=== PATIENT | female | born 1960 | race Caucasian/White ===

== ENCOUNTER 2023-04-28 20:10 | Emergency (ER) | payer OTHER, SELFPAY ==
[2023-04-28 20:12] VITALS: BP 192/88; PULSE 96; RESP 20; TEMP 37.2; O2SAT 95; BMI 24.1
--- NOTE | 2023-04-28 20:15 | DI.RAD.S_ITS ---
PROCEDURE: XR CHEST 1V INDICATIONS: fall TECHNIQUE: One view of the chest was acquired. COMPARISON: None. FINDINGS: Surgical changes and devices: None. Lungs and pleura: Lungs are clear. No pleural effusions or pneumothorax. Mediastinum: Mediastinal contours appear normal. Heart size is normal. Bones and chest wall: No suspicious bony lesions. Overlying soft tissues appear unremarkable. IMPRESSION: No acute pulmonary process. Dictated by: Brenda Bradley M.D. on 04/28/2023 at 20:33 Approved by: Brenda Bradley M.D. on 04/28/2023 at 20:33
--- NOTE | 2023-04-28 20:15 | DI.CT.S_ITS ---
PROCEDURE: CT HEAD/BRAIN WO CON INDICATIONS: fall TECHNIQUE: Noncontrast 4.5 mm thick angled axial sections acquired from the foramen magnum to the vertex, with coronal and sagittal reformats. For radiation dose reduction, the following was used: automated exposure control, adjustment of mA and/or kV according to patient size. COMPARISON: None. FINDINGS: Image quality: Excellent. CSF spaces: Basal cisterns are patent. No extra-axial fluid collections. Ventricles are normal in size and shape. Brain: No midline shift. No intracranial masses or hemorrhage. Garcia-white matter interface is normal. Skull and face: Calvarium and visualized facial bones are intact, without suspicious lesions. Sinuses: Visualized sinuses and mastoids are clear. IMPRESSION: 1. No acute intracranial process. Dictated by: Brenda Bradley M.D. on 04/28/2023 at 20:56 Approved by: Brenda Bradley M.D. on 04/28/2023 at 20:57
--- NOTE | 2023-04-28 20:15 | DI.CT.S_ITS ---
PROCEDURE: CT CERVICAL SPINE WO CON INDICATIONS: fall TECHNIQUE: Noncontrast 3 mm thick sections acquired from the skull base to the T4 level. Sagittal and coronal reformats were then constructed. For radiation dose reduction, the following was used: automated exposure control, adjustment of mA and/or kV according to patient size. COMPARISON: [facility], CT, CT HEAD/BRAIN WO CON, 04/28/2023, 20:25. FINDINGS: Image quality: Excellent. Bones: No fractures or dislocations. Visualized superior ribs are intact. Multilevel degenerative changes are present most severe with disc space narrowing at C5-6. Soft tissues: Prevertebral soft tissues are normal in thickness. No paravertebral hematomas. No apical pneumothoraces. IMPRESSION: Multilevel degenerative changes without visualized fracture. Dictated by: Brenda Bradley M.D. on 04/28/2023 at 20:54 Approved by: Brenda Bradley M.D. on 04/28/2023 at 20:56
--- NOTE | 2023-04-28 20:33 | PC.NURSE ---
While holding spine precautions, pt's collar readjusted to fit pt properly. Pt given education on plan of care and why she has a c collar on. Pt verbalizes understanding.
[2023-04-28] MEDS: ACETAMINOPHEN 325 MG TABLET 975 MG PO (20:46)
--- NOTE | 2023-04-28 21:45 | PC.NURSE ---
Dr. Quijano reviewed ct scans. C-collar removed from patient.
[2023-04-28 22:12] VITALS: BP 173/82; PULSE 76; RESP 16; O2SAT 98
--- NOTE | 2023-04-28 22:43 | ED.NECK ---
HPI - Neck Pain/Injury General Chief Complaint: Neck Pain/Injury Stated Complaint: Fall down 5 stairs Time Seen by Provider: 04/28/23 20:15 Mode of arrival: Ambulatory History of Present Illness HPI Narrative: Patient is a 62-year-old female poor historian presenting today after a fall. Friends with her report that she was on a boat top of stairs when she fell down hitting her head kind of landing to the right. There was a brief loss of consciousness. She is not on antiplatelet medication. There is a reported history of some heart problem but it is very unclear what the problem is she denies heart attacks or mechanical valve. He has no nausea or vomiting she is awake alert she has pain and contusion behind her head but no other injuries. Related Data Allergies Allergy/AdvReac Type Severity Reaction Status Date / Time No Known Drug Allergies Allergy Verified 04/28/23 20:25 Review of Systems Review of Systems ROS Unobtainable: All systems reviewed & are unremarkable except as noted in HPI and below Patient History Social History Smoking Status: Never smoker Smoking Status: Never smoker alcohol intake frequency: 0-2 drinks per day Substance Use Type: does not use Exam Initial Vital Signs Initial Vital Signs: Vital Signs Temperature 98.9 F 04/28/23 20:12 Pulse Rate 96 H 04/28/23 20:12 Respiratory Rate 20 04/28/23 20:12 Blood Pressure 192/88 H 04/28/23 20:12 Pulse Oximetry 95 04/28/23 20:12 Oxygen Delivery Method Room Air 04/28/23 20:12 GENERAL: Well-appearing, well-nourished and in no acute distress. HEENT: Head posterior contusion and swelling there is blood difficult to find laceration or abrasion EOMI, pupils reactive, face symmetric, moist mucous membranes NECK: Vertebral tenderness C-collar in place CARDIOVASCULAR: Regular rate and rhythm without murmurs, rubs or gallops. RESPIRATORY: Breath sounds equal bilaterally, no wheezes rales or rhonchi. ABDOMEN: Soft, nontender. Normoactive bowel sounds all 4 quadrants. No guarding or rebound. EXTREMITIES: Normal range of motion, no clubbing or edema. Neurovascularly intact NEUROLOGICAL: Alert and oriented x4.Normal gait and speech. Cranial nerves II through XII grossly intact. Student Officer strength equal bilaterally SKIN: Warm, dry, no laceration, no petechiae, no rashes or lesions. Scores GCS [place] coma scale eye opening: Spontaneous [place] coma scale verbal response: Orientated [place] coma scale motor response: Obey commands [place] coma scale total score: 15 Course Orders Ordered: ED Orders 04/28/23 20:15 CT cervical spine wo con Stat CT head/brain wo con Stat Chest [XR chest 1V] Stat Discontinued Medications Acetaminophen (Acetaminophen 325 Mg Tablet) 975 mg PO NOW ONE Stop: 04/28/23 20:16 Last Admin: 04/28/23 20:46 Dose: 975 mg Documented By: LUIS Vital Signs Vital signs: Vital Signs - 8 hr 04/28/23 22:12 04/28/23 22:51 04/28/23 23:20 Pulse Rate 76 77 Respiratory Rate 16 16 Blood Pressure 173/82 H 170/77 H 181/89 H Pulse Oximetry 98 98 Oxygen Delivery Method Room Air Room Air MDM - Neck Pain/Injury Imaging Data CT - cervical spine: Radiologist's Impression: PROCEDURE:? CT CERVICAL SPINE WO CON ? INDICATIONS:? fall ? TECHNIQUE:? Noncontrast 3 mm thick sections acquired from the skull base to the T4 level.? Sagittal and coronal reformats were then constructed.? For radiation dose reduction, the following was used:? automated exposure control, adjustment of mA and/or kV according to patient size.? ? COMPARISON:? [facility], CT, CT HEAD/BRAIN WO CON, 04/28/2023, 20:25. ? FINDINGS:? Image quality:? Excellent.? ? Bones:? No fractures or dislocations.? Visualized superior ribs are intact.? Multilevel degenerative changes are present most severe with disc space narrowing at C5-6. ? Soft tissues:? Prevertebral soft tissues are normal in thickness.? No paravertebral hematomas.? No apical pneumothoraces.? ? ? IMPRESSION:? Multilevel degenerative changes without visualized fracture. ? Dictated by: Brneda Bradley M.D. on 04/28/2023 at 20:54? Chest x-ray: Radiologist's Impression: PROCEDURE:? XR CHEST 1V ? INDICATIONS:? fall ? TECHNIQUE:? One view of the chest was acquired.? ? COMPARISON:? None. ? FINDINGS:? ? Surgical changes and devices:? None.? ? Lungs and pleura:? Lungs are clear.? No pleural effusions or pneumothorax.? ? Mediastinum:? Mediastinal contours appear normal.? Heart size is normal.? ? Bones and chest wall:? No suspicious bony lesions.? Overlying soft tissues appear unremarkable.? ? IMPRESSION:? No acute pulmonary process. ? ? Dictated by: Brenda Bradley M.D. on 04/28/2023 at 20:33 ?? CT scan - head: Radiologist's Impression: PROCEDURE:? CT HEAD/BRAIN WO CON ? INDICATIONS:? fall ? TECHNIQUE:? Noncontrast 4.5 mm thick angled axial sections acquired from the foramen magnum to the vertex, with coronal and sagittal reformats.? For radiation dose reduction, the following was used:? automated exposure control, adjustment of mA and/or kV according to patient size.? ? COMPARISON:? None. ? FINDINGS:? Image quality:? Excellent.? ? CSF spaces:? Basal cisterns are patent.? No extra-axial fluid collections.? Ventricles are normal in size and shape.? ? Brain:? No midline shift.? No intracranial masses or hemorrhage.? Garcia-white matter interface is normal.? ? Skull and face:? Calvarium and visualized facial bones are intact, without suspicious lesions.? ? Sinuses:? Visualized sinuses and mastoids are clear.? ? IMPRESSION:? 1. No acute intracranial process. ? ? Dictated by: Brenda Bradley M.D. on 04/28/2023 at 20:56 ? MDM Narrative Medical decision making narrative: Patient 62-year-old female extremely poor historian here with friends who do not know much more presents today after fall down 5 stairs. Possible brief loss of consciousness but now has a GCS of 15, she does have a posterior scalp contusion but no obvious laceration he with other is blood. Patient mildly cooperated to let us clean her up. She is given Tylenol for pain. She reports that she has a heart history but not sure what is going on. Not sure that she is on anticoagulation he denies it. She has no other injury chest x-ray is negative for pneumothorax or rib fracture. Moving all extremities. This time she is going home) to watch her. No further workup for imaging is indicated. Discharge Plan Departure Patient Disposition: Home Clinical Impression: Closed head injury Instructions: Concussion Activity Restrictions/Additional Instructions: *You have been diagnosed with concussion, closed head injury *What to do: At this time your scans are negative. He may continue to have headaches dizziness and nausea. You may noticed that screens and light make her headache worse. Please rest and sleep. *Continue to take medications as directed Tylenol 1000 mg every 6 hours if needed for [id number] pain Motrin 600 mg every 6 hours if needed for [id number]-[id number] pain *Follow up with your primary care provider in 2-3 days or call [phone] *Return to ER if you should have worsening headache persistent vomiting weakness seizures confusion or any new, worsening or concerning symptoms Stand Alone Forms: Patient Portal/API
[2023-04-28 22:51] VITALS: BP 170/77; PULSE 77; RESP 16; O2SAT 98
[2023-04-28 23:20] VITALS: BP 181/89
--- NOTE | 2023-04-28 23:25 | PC.NURSE ---
Multiple staff members attempted to wash pt's hair of dried blood to find the source of bleeding on srikanth back of her head that has resolved on it's own. Pt did not tolerate this well and has refused to allow staff to check her scalp to rule out a need for stitches. This Rn and the MD has educated pt on the importance to find the source of bleeding but pt continues to refuse. Pt is A&Ox4. There has been no signs of active bleeding since pt's arrival to this ED and the amount of dried blood in her hair is minimal.
== END 2023-04-28 23:29 | disposition home or self-care (01) ==
PROVIDERS: Emergency Provider Emergency Medicine
DX: S09.90XA Unspecified injury of head, initial encounter (principal); W10.9XXA Fall (on) (from) unspecified stairs and steps, initial encounter
CPT/HCPCS: 70450; 71045; 72125; 99284